=== PATIENT | female | born 1980 | race Caucasian/White ===

== ENCOUNTER → 2017-09-21 | Outpatient (CLI) | payer OTHER ==
[~2017-09-21] MED LIST: MULTTAB58 PO
--- NOTE | 2017-09-21 15:18 | DIAGNOSTIC IMAGING REPORT ---
CHEST 2 VIEWS ROUTINE HISTORY: 37 years-old Female R50.9 [id number] Productive [id number] acute fever with cough COMPARISON: None available TECHNIQUE: PA and lateral views of the chest FINDINGS: Probable supracondylar spur measuring 7 mm is seen involving the distal left humerus. Bones appear grossly intact. The cardiomediastinal and hilar silhouettes are within normal limits. There is no pneumothorax, pleural effusion, focal airspace consolidation or overt pulmonary edema. IMPRESSION: No acute process. The above report was generated using voice recognition software. It may contain grammatical, syntax or spelling errors. Electronically signed by: Valentin Tamez M.D. 09/21/2017 3:17 PM Dictated Date/Time: 09/21/2017 3:15 PM
== END | disposition home or self-care (01) ==
LOC: C.RAD1850 14:54
PROVIDERS: ATTEND Internal Medicine
DX: R50.9 Fever, unspecified (principal); R05 Cough

== ENCOUNTER → 2018-03-23 | Outpatient (CLI) | payer OTHER | END | disposition home or self-care (01) | LOC: C.LABBFT 13:23 | PROVIDERS: ATTEND Internal Medicine | DX: Z20.5 Contact with and (suspected) exposure to viral hepatitis (principal) ==